=== PATIENT | female | born 2000 | race Caucasian/White ===

== ENCOUNTER 2020-04-24 16:01 | Emergency (ER) | payer OTHER, SELFPAY ==
[2020-04-24 16:12] VITALS: BP 111/67; PULSE 71; RESP 18; TEMP 36.9; O2SAT 100
== END 2020-04-24 16:25 | disposition left against medical advice (07) ==
LOC: EXPBETH 16:08
PROVIDERS: Emergency Provider Nurse Practitioner
DX: Z53.21 Procedure and treatment not carried out due to patient leaving prior to being seen by health care provider (principal)
CPT/HCPCS: 99199